=== PATIENT | male | born 1985 | race African-American/Black ===

== ENCOUNTER 2018-04-15 09:31 | Emergency (ER) | payer OTHER ==
[2018-04-15 09:53] VITALS: BP 118/62; PULSE 59; TEMP 98.1; BMI 20.3
[2018-04-15] MEDS ORDERED: IBUPROFEN 400 MG TABLET (FP) PO ONE ×2 (10:10→10:11)
--- NOTE | 2018-04-15 10:14 | PDOC ---
History of Present Illness - General Chief Complaint: Pain, Acute Stated Complaint: KNEE PAIN Time Seen by Provider: 04/15/18 10:09 History Source: Patient Exam Limitations: No Limitations (R knee pain) - History of Present Illness Associated Symptoms: denies: chest pain, cough, fever/chills Past History - Travel Close contact w/someone who was outside of country & ill: No - Past Medical History Allergies/Adverse Reactions: Allergies Allergy/AdvReac Type Severity Reaction Status Date / Time No Known Allergies Allergy Verified 04/15/18 09:48 Home Medications: Ambulatory Orders Ibuprofen 600 mg PO ACDIN 7 Days #21 tablet 04/15/18 Ibuprofen 600 mg PO ACDIN 7 Days #21 tablet 04/15/18 Anemia: No COPD: No - Surgical History Abdominal Surgery: No - Suicide/Smoking/Psychosocial Hx Smoking Status: No Smoking History: Never smoked Number of Cigarettes Smoked Daily: 0 Hx Alcohol Use: No Drug/Substance Use Hx: No Review of Systems - Review of Systems Is the patient limited Divehi proficient: No Constitutional: No: Chills, Fever Musculoskeletal: Yes: Joint Pain, Other (R knee pain). No: Joint Swelling, Muscle Pain, Muscle Weakness, Neck Pain *Physical Exam - Vital Signs Last Vital Signs Temp Pulse Resp BP Pulse Ox 98.1 F 59 L 18 118/62 99 04/15/18 09:48 04/15/18 09:48 04/15/18 09:48 04/15/18 09:48 04/15/18 09:48 - Physical Exam General Appearance: Yes: Nourished HEENT: positive: JOHN, Normal ENT Inspection Respiratory/Chest: positive: Lungs Clear, Labored Respiration Cardiovascular: positive: Regular Rhythm, Regular Rate, S1, S2 Extremity: positive: Normal Capillary Refill, Normal Inspection, Normal Range of Motion, Other (R knee: no obvious swelling or creptius noted) Neurologic: positive: computer compositor II-XII NML intact, Fully Oriented, Alert ED Treatment Course - RADIOLOGY Radiology Studies Ordered: Category Date Time Status KNEE 2 POS-RIGHT [RAD] Stat Radiology 04/15/18 10:09 Ordered Medical Decision Making - Medical Decision Making 04/15/18 10:11 32 y/o M with R knee pain s/p increased skating activity X 1wk Pt denies any direct fall to the knee point is having knee during ambulation. Examination no obvious swelling crepitus on range of motion. normal gait. P Plan xray. nsaids 04/15/18 10:49 wet read of x-fraction or any acute effusion. Patient is ambulating fine in the emergency room. Rice instructions ortho referall recommended if pain persist *DC/Admit/Observation/Transfer Diagnosis at time of Disposition: Knee pain, right Qualifiers: Chronicity: acute Qualified Code(s): M25.561 - Pain in right knee - Discharge Dispostion Disposition: HOME Condition at time of disposition: Stable Decision to Admit order: No - Prescriptions Prescriptions: Ibuprofen 600 mg PO ACDIN 7 Days #21 tablet Ibuprofen 600 mg PO ACDIN 7 Days #21 tablet - Referrals Referrals: Nabeel Puildo MD [Staff Physician] - 1 week - Patient Instructions Printed Discharge Instructions: DI for Knee Pain Additional Instructions: I discussed the physical exam findings, ancillary test results and final diagnoses with the patient. I answered all of the patient's questions. The patient was satisfied with the care received and felt comfortable with the discharge plan and treatment plan. The patient will call their primary care physician within 24 hours to arrange follow-up and will return to the Emergency Department with any new, persistant or worsening symptoms. - Post Discharge Activity
== END 2018-04-15 11:09 | disposition home or self-care (01) ==
LOC: JERFT 09:31
DX: M25.561 Pain in right knee (principal)
CPT/HCPCS: 73560-TC-RT-FY; 99281-25